=== PATIENT | male | born 1955 | race Caucasian/White ===

== ENCOUNTER 2017-07-30 09:24 | Emergency (ER) | payer BC ==
[2017-07-30] MEDS ORDERED: Ketorolac 60 MG/2 ML SDV IM ONE (09:46)
--- NOTE | 2017-07-30 09:48 | EDM.PDOC ---
ED HPI GENERAL MEDICAL PROBLEM - General Chief Complaint: Lower Extremity Injury/Pain Stated Complaint: RT LEG NUMBNESS Time Seen by Provider: 07/30/17 09:46 Source of Information: Reports: Patient - History of Present Illness INITIAL COMMENTS - FREE TEXT/NARRATIVE: HISTORY AND PHYSICAL: History of present illness: [Patient presents with pain right hip and anterior thigh sciatic distribution,, he does his doctoring through [place] as he is a resident in [place], he has no imaging on file but relates he has known disc bulge L4-L5, he did receive acupuncture and chiropractic adjustment yesterday As stated has history of low back pain pain began several days ago after stumbling on some height at work, he then follow-up with chiropractor for adjustment and then acupuncture and presents as such No fever nausea vomiting chills sweats no footdrop or saddle anesthesia bowel or urine symptoms ] Review of systems: As per history of present illness and below otherwise all systems reviewed and negative. Past medical history: As per history of present illness and as reviewed below otherwise noncontributory. Surgical history: As per history of present illness and as reviewed below otherwise noncontributory. Social history: No reported history of drug or alcohol abuse. Family history: As per history of present illness and as reviewed below otherwise noncontributory. Physical exam: HEENT: Atraumatic, normocephalic, pupils reactive, negative for conjunctival pallor or scleral icterus, mucous membranes moist, throat clear, neck supple, nontender, trachea midline. Lungs: Clear to auscultation, breath sounds equal bilaterally, chest nontender. Heart: S1S2, regular, negative for clicks, rubs, or JVD. Abdomen: Soft, nondistended, nontender. Negative for masses or hepatosplenomegaly. Negative for costovertebral tenderness. Pelvis: Stable nontender. Genitourinary: Deferred. Rectal: Deferred. Extremities: Atraumatic, negative for cords or calf pain. Neurovascular unremarkable. Neuro: Awake, alert, oriented. Cranial nerves II through XII unremarkable. Cerebellum unremarkable. Motor and sensory unremarkable throughout. Exam nonfocal. Diagnostics: [Lumbar spine Right hip] Therapeutics: [Toradol 60 IM] Patient will be trying to travel to his primary care physician for continued management, he will be flying He has a gravel truck driver available now, he may be making arrangements for a flight provided Leondra music pack and Flexeril for his ride home/light Impression: [Chronic low back pain no Known L4-L5 disc bulge Right sciatic distribution pain] Definitive disposition and diagnosis as appropriate pending reevaluation and review of above. Right Upper Leg Pain Score (Numeric/FACES): 8 - Related Data Allergies Allergy/AdvReac Type Severity Reaction Status Date / Time No Known Allergies Allergy Verified 07/30/17 09:37 Home Meds: Home Meds . [No Known Home Meds] 07/30/17 [History] Past Medical History Oncologic (Cancer) History: Reports: Bladder - Past Surgical History GI Surgical History: Reports: Appendectomy Social & Family History - Family History Family Medical History: Noncontributory - Tobacco Use Smoking Status *Q: Current Every Day Smoker Years of Tobacco use: 40 Packs/Tins Daily: 1 - Caffeine Use Caffeine Use: Reports: Coffee - Recreational Drug Use Recreational Drug Use: No Review of Systems - Review of Systems Review Of Systems: ROS reveals no pertinent complaints other than HPI. ED EXAM, GENERAL - Physical Exam Exam: See Below Course - Vital Signs Last Recorded V/S: Last Vital Signs Temp 36.1 C 07/30/17 09:34 Pulse 99 07/30/17 09:34 Resp 22 H 07/30/17 09:34 BP 134/80 07/30/17 09:34 Pulse Ox 97 07/30/17 09:34 - Orders/Labs/Meds Meds: Medications Discontinued Medications Generic Name Dose Route Start Last Admin Trade Name Freq PRN Reason Stop Dose Admin Ketorolac Tromethamine 60 mg 07/30/17 09:46 07/30/17 09:53 Toradol IM 07/30/17 09:47 60 mg ONETIME ONE Administration Departure - Departure Time of Disposition: 10:37 Disposition: Home, Self-Care 01 Condition: Good Clinical Impression: Sciatic leg pain - Discharge Information Referrals: PCP,None [Primary Care Provider] - Forms: ED Department Discharge Additional Instructions: Medication as prescribed Return if symptoms persist or worsen Follow-up with primary care on return home No driving on above medications The following information is given to patients seen in the emergency department who are being discharged to home. This information is to outline your options for follow-up care. We provide all patients seen in our emergency department with a follow-up referral. The need for follow-up, as well as the timing and circumstances, are variable depending upon the specifics of your emergency department visit. If you don't have a primary care physician on staff, we will provide you with a referral. We always advise you to contact your personal physician following an emergency department visit to inform them of the circumstance of the visit and for follow-up with them and/or the need for any referrals to a consulting specialist. The emergency department will also refer you to a specialist when appropriate. This referral assures that you have the opportunity for follow-up care with a specialist. All of these measure are taken in an effort to provide you with optimal care, which includes your follow-up. Under all circumstances we always encourage you to contact your private physician who remains a resource for coordinating your care. When calling for follow-up care, please make the office aware that this follow-up is from your recent emergency room visit. If for any reason you are refused follow-up, please contact the [facility] emergency department at and asked to speak to the emergency department charge nurse.
--- NOTE | 2017-07-30 10:15 | CR ---
EXAMINATION: Lumbar spine HISTORY: Pain COMPARISON: None TECHNIQUE: AP and lateral views FINDINGS: The lumbar spinal alignment is normal. The vertebral body heights appear maintained. Mild d isc space narrowing noted at L5-S1. Mild marginal osteophytes are noted. The SI joints are symmetric. Bone mineralization is normal. IMPRESSION: Mild degenerative changes without acute findings.
--- NOTE | 2017-07-30 10:17 | CR ---
EXAMINATION: Right hip HISTORY: Pain COMPARISON: None TECHNIQUE: 2 views FINDINGS/IMPRESSION: There is no acute osseous abnormality, dislocation, or fracture. Joint spaces an d bone mineralization appear normal. Mild sclerosis noted within the acetabulum with early osteoarthr itic changes.
== END 2017-07-30 10:46 | disposition home or self-care (01) ==
LOC: MW.ED 09:24
DX: M54.41 Lumbago with sciatica, right side (principal); M79.604 Pain in right leg; G89.29 Other chronic pain; F17.210 Nicotine dependence, cigarettes, uncomplicated
CPT/HCPCS: 72100; 73502; 96372; 99283; J1885; 99282